=== PATIENT | female | born 1950 | race Caucasian/White ===

== ENCOUNTER → 2023-01-30 | Outpatient (CLI) | payer MEDICARE, OTHER ==
[~2023-01-30] VITALS: Ht 170 cm; Wt 105.0 kg
[~2023-01-30] MED LIST: CATHETER FLUSH 10 ML SYR IVP PRN; REGADENOSON 0.4 MG/5 ML SYR (LEXISCAN) IV ONE
[2023-01-30 07:55] VITALS: BP 194/90
--- NOTE | 2023-01-30 12:17 | Cardiology Stress Test Report ---
Stress Test Report Date of Procedure/Referring: Date of Procedure: Jan 30, 2023 PCP Parvin Galvan MD Admitting Physician Admitting Physician: Attending Physician: Heraclio Tavarez MD Baseline Heart Rate: 84 Baseline Blood Pressure: Blood Pressure Systolic: 194 Blood Pressure Diastolic: 90 Baseline Vitals Vital Signs Date Time Temp Pulse Resp B/P (MAP) Pulse Ox O2 Delivery O2 Flow Rate FiO2 01/30/23 07:55 81 194/90 (124) Baseline EKG: Baseline EKG: NSR Summary After explaining the procedure to the patient, she signed a consent and then brought to the stress nuclear laboratory. Patient received 0.4 mg Lexiscan for stress test, ECG, heart rate and blood pressure were monitored continuously. Resting and stress dose of radio tracer were injected, imaging was acquired and reviewed in short axis, horizontal long axis and vertical long axis views. TID: 1.21 SSS: 1 SDS: 1 EF: 69 Patient tolerated Lexiscan well Occasional PVCs noted during test No ischemia or infarction noted on SPECT images Normal left ventricular size, ejection fraction 69% Copy Copies To 1: [facility] – [place], [place] HERACLIO TAVAREZ MD Jan 30, 2023 12:17
== END ==
LOC: CARD 06:31
PROVIDERS: ATTEND Internal Medicine Cardiovascular Disease
DX: I25.10 Atherosclerotic heart disease of native coronary artery without angina pectoris (principal); I10 Essential (primary) hypertension
CPT/HCPCS: 78452; 93017; A9502; C8929; 93306

== ENCOUNTER 2023-03-05 10:58 | Day surgery (SDC) | payer MEDICARE ==
[~2023-03-05] VITALS: Ht 172.7 cm; Wt 108.0 kg
[2023-03-05] VITALS (8 sets, daily range): BP systolic 158–183; BP diastolic 66–73
[2023-03-05] MEDS ORDERED: NS IV 1000 ML 1,000 ML ONE (12:45)
[2023-03-05] MEDS ORDERED: HEParin (CATH LAB) 2,000 ML IV ONE (12:45)
[2023-03-05] MEDS ORDERED: NS IV 1000 ML 1,000 ML IV SCH ×3 (12:45→15:30)
[2023-03-05] MEDS ORDERED: LIDOCAINE 1% INJ 20 ML VIAL ONE (12:46)
[2023-03-05 13:18] LABS: HEMATOCRIT 44 % (35-52); HEMOGLOBIN 13.9 g/dL (11.5-16.0); MEAN CORPUSCULAR HEMOGLOBIN 28 pg (25-34); MEAN CORPUSCULAR HGB CONC 32 g/dL (32-36); MEAN CORPUSCULAR VOLUME 89 fL (80-99); MEAN PLATELET VOLUME 10.3 fL (9.0-12.2); PLATELET COUNT 207 10^3/uL (130-400); WHITE BLOOD COUNT 9.4 10^3/uL (4.3-11.0)
[2023-03-05 13:31] LABS: PROTHROMBIN TIME PATIENT 13.6 SEC (12.2-14.7)
--- NOTE | 2023-03-05 13:36 | Diagnostic Imaging Report ---
INDICATION: Evaluation prior to coronary catheterization COMPARISON: None FINDINGS: Single frontal view of the chest demonstrates normal heart size and pulmonary vascularity. The lungs are well aerated and clear. No large pleural effusion or pneumothorax is seen. The visualized osseous structures show no acute abnormalities. IMPRESSION: 1. No acute cardiopulmonary process. Dictated by: Dictated on workstation # [id number]
[2023-03-05 13:41] LABS: ALBUMIN 4.1 GM/DL (3.2-4.5); BILIRUBIN,TOTAL 0.7 MG/DL (0.1-1.0); CALCIUM 9.2 MG/DL (8.5-10.1); CREATININE SERUM 1.01 MG/DL (0.60-1.30)
[2023-03-05 13:42] LABS: POTASSIUM 4.8 MMOL/L (3.6-5.0)
[2023-03-05 13:45] LABS: BACTERIA,URINE TRACE /HPF; BILIRUBIN,URINE 1+ (NEGATIVE); CLARITY,URINE SL CLOUDY; COLOR,URINE YELLOW; GLUCOSE, URINE (UA) NEGATIVE (NEGATIVE); KETONES,URINE 1+ (NEGATIVE); LEUKOCYTE ESTERASE ,URINE NEGATIVE (NEGATIVE); NITRITE,URINE NEGATIVE (NEGATIVE); PROTEIN,URINE 1+ (NEGATIVE); RBC,URINE 0-2 /HPF; WBC,URINE 0-2 /HPF
[2023-03-05] MEDS ORDERED: ROSU20TA73 PO (13:54)
[2023-03-05] MEDS ORDERED: LOSA25TA41 PO (13:54)
[2023-03-05] MEDS ORDERED: MONT-40 PO (13:54)
[2023-03-05] MEDS ORDERED: ERGO1250 PO (13:54)
[2023-03-05] MEDS ORDERED: LIDO700A45 TP (13:54)
[2023-03-05] MEDS ORDERED: NYST15OI13 TP (13:54)
[2023-03-05] MEDS ORDERED: CYCL10TA25 PO (13:54)
[2023-03-05] MEDS ORDERED: FAMO40TA6 PO (13:54)
[2023-03-05] MEDS ORDERED: AMLO-250 PO (13:54)
[2023-03-05] MEDS ORDERED: FLUT9.9S NS (13:54)
[2023-03-05] MEDS ORDERED: MULT-1029 PO (13:54)
[2023-03-05] MEDS ORDERED: OXYC10TA7 PO (13:54)
[2023-03-05] MEDS ORDERED: RT-ALBUINH INH (13:54)
[2023-03-05] MEDS ORDERED: MTP100TCR PO (13:54)
[2023-03-05] MEDS ORDERED: AZEL137S11 NS (13:54)
[2023-03-05] MEDS ORDERED: MIDAZOLAM INJ 5 MG/5 ML VIAL ONE (14:45)
[2023-03-05] MEDS ORDERED: NITRO DRIP 25000 MCG/D5W 250 ML IV ONE (14:45)
[2023-03-05] MEDS ORDERED: VERAPAMIL 5 MG/2 ML (CALAN) VIAL IV ONE (14:45)
[2023-03-05] MEDS ORDERED: HEParin 1000 UNIT/ML (10ML VIAL) FOR BOLUS ONE (14:45)
[2023-03-05] MEDS ORDERED: fentaNYL INJECTION 100 MCG/2 ML VIAL ONE ×2 (14:45→15:14)
--- NOTE | 2023-03-05 15:28 | Cardiac Procedure Note-CS/ASA ---
Pre-Procedure Note Pre-Op Procedure Note Date of Available H&P: Feb 25, 2023 Date H&P Reviewed: Mar 05, 2023 Time H&P Reviewed: 14:00 History & Physical: H&P Reviewed, Patient Examed, No changes noted Pre-Operative Diagnosis: CAD Moderate Sedation PreProcedure Time 14:00 ASA Score 3 Airway Lungs Heart ASA score ASA 1: a normal healthy patient ASA 2: a patient with a mild systemic disease (mid diabetes, controlled hypertension, obesity ASA 3: a patient with a severe systemic disease that limits activity (angina, COPD, prior Myocardial infarction) ASA 4: a patient with an incapacitating disease that is a constant threat to life (CHF, renal failure) ASA 5: a moribund patient not expected to survive 24 hrs. (ruptured aneurysm) ASA 6: a declared brain- patient whose organs are being harvested. For emergent operations, add the letter E after the classification Mallampati Classification Grade 3 Sedation Plan Analgesia, Amnesia, Plan communicated to team members, Discussed options with patient/fam, Discussed risks with patient/fam The patient is an appropriate candidate to undergo the planned procedure, sedation, and anesthesia. The patient immediately re-assessed prior to indication. LAKESHA MASCORRO MD Mar 05, 2023 15:28
[2023-03-05] MEDS ORDERED: PATIENT MAY USE OWN MEDS, ALL PO SCH (15:30)
--- NOTE | 2023-03-05 15:32 | Discharge Inst-Post CATH ---
Discharge Inst-CATH/EP Problems Reviewed?: Yes Post Cardiac Cath/EP D/C Inst Follow Up/Plan Appointment with Dr Tavarez in 2-4 weeks <b>CARDIAC CATH/EP PROCEDURE DISCHARGE INSTRUCTIONS</b> ACTIVITY * Go Home directly and rest. * Limit activity of the leg (or wrist if it was used) for 7 days including aerobics, swimming, jogging, bicycling, etc. * Restrict stair-climbing for 7 days if possible, if not, climb up with your non-cath leg, then bring together on the same step. * Avoid lifting, pushing, pulling or excessive movement of the affected extremity for 7 days. * Customary sexual activity may be resumed after 2 days-use caution not to use a position that strains or causes pain to the affected extremity. * No driving for 24 hours. * NO SMOKING. * Avoid straining for bowel movements for 7 days. * Gentle walking on level ground is allowed. * Returning to work will depend on the type of procedure and the results. Your doctor will discuss this with you. CALL YOUR DOCTOR FOR ANY OF THE FOLLOWING: *If bleeding from the puncture site occurs- Apply gentle pressure to site with clean cloth and call your doctor or EMS. * If a knot or lump forms under the skin, increases in size, or causes pain. * If bruising appears to be worsening or moving further down your leg instead of disappearing. * Temperature above 101 F. CARE OF YOUR GROIN INCISION; * Bruising or purple discoloration of the skin near the puncture site is common. * You may shower only, no bathtub bathing for 5 days. Be careful to avoid slipping as your leg may feel stiff. * If a closure device was used on your femoral artery, please see the attached guide regarding care of the device and your leg. * Leave dressing on FOR 24 hours. CARE OF YOUR WRIST INCISION; * Bruising or purple discoloration of the skin near the puncture site is common. * You may shower. * DO NOT submerge wrist. * Leave dressing on FOR 24 hours. LAKESHA TAVAREZ MD Mar 05, 2023 15:31
--- NOTE | 2023-03-05 15:37 | Cardiac Cath Report ---
Cardiac Cath Report Physician (s)/Hand [employer]working Sander (s) Physician LAKESHA MASCORRO MD Pre-Procedure Diagnosis Pre-Procedure Diagnosis: CAD Post-Procedure Note Procedure Start Date: Mar 05, 2023 Name of Procedure: Left heart catheterization Findings/Procedure Note PROCEDURE NOTE: 72-year-old lady with history of coronary artery disease multiple intervention in the past had an abnormal stress test with transient ischemic dilatation. Scheduled for cardiac catheterization. After explaining the procedure to the patient, all pros and cons were explained, all questions were answered. The patient signed the consent and then she was placed in the cardiac catheterization laboratory. Groin was prepped in SL fashion local anesthesia was used. Sheath placed in the right femoral artery. Gasper' right and left catheter were used to access the coronary system. Gasper right was prolapsed to the left ventricular cavity, pressure was measured, pullback LV to aorta was done. At the end of the procedure the sheath was removed. Closure device was deployed FINDINGS: Hemodynamics LV 143/12, end-diastolic pressure of 12 Aorta 158/65 mean of 80 ANATOMY: Left Main is free of obstructive disease Left Anterior Descending is moderate in size with 40 to 50% stenosis in the mid LAD nonobstructive disease Left Circumflex is moderate in size with 40% stenosis in the mid circumflex artery Right Coronary Artery is large dominant artery with multiple patent stent, at the ostium of the right coronary artery there is 40 to 50% stenosis, distal right coronary artery has 40 to 50% stenosis LV Gram was not done, pressure was measured CONCLUSION: Patent multiple stents in the right coronary artery with multiple lesion of 40 to 50% stenosis in the proximal and distal right coronary artery mid LAD and mid circumflex artery DISCUSSION AND RECOMMENDATION: Maximize medical therapy, no intervention is warranted Anesthesia Type: Conscious Sedation Estimated blood loss (mL): 30 ml Contrast Amount: 57 ml Total Radiation Dose: 606 mGy Post-Procedure Diagnosis Post-operative diagnosis: Chest pain Coronary artery disease Hypertension Hyperlipidemia LAKESHA MASCORRO MD Mar 05, 2023 15:37
== END 2023-03-05 20:30 | disposition home or self-care (01) ==
LOC: CATH 10:58 → CSD 16:04 → CATH 20:30
PROVIDERS: ATTEND Internal Medicine Cardiovascular Disease
DX: I25.10 Atherosclerotic heart disease of native coronary artery without angina pectoris (principal); E78.5 Hyperlipidemia, unspecified; I10 Essential (primary) hypertension; I48.0 Paroxysmal atrial fibrillation; I65.23 Occlusion and stenosis of bilateral carotid arteries; I50.32 Chronic diastolic (congestive) heart failure; M79.669 Pain in unspecified lower leg; M19.90 Unspecified osteoarthritis, unspecified site; Z87.891 Personal history of nicotine dependence; Z79.899 Other long term (current) drug therapy; Z87.19 Personal history of other diseases of the digestive system; Z79.82 Long term (current) use of aspirin
CPT/HCPCS: 71045; 80053; 80061; 81000; 85027; 85610; 85730; 87081; 93005; 93458; C1760; C1894; 36415